=== PATIENT | male | born 1955 | race Caucasian/White ===

== ENCOUNTER 2017-01-29 12:42 | Emergency (ER) | payer OTHER, BC ==
[2017-01-29 12:56] VITALS: BP 135/92; PULSE 62; TEMP 97.8; BMI 32.1
[2017-01-29] MEDS ORDERED: IBUPROFEN 400 MG TABLET (FP) PO ONE ×2 (14:02→14:14)
--- NOTE | 2017-01-29 14:03 | PDOC ---
History of Present Illness - General Chief Complaint: Pain, Acute Stated Complaint: YPD - RT KNEE PAIN Time Seen by Provider: 01/29/17 13:55 History Source: Patient Exam Limitations: No Limitations - History of Present Illness Initial Comments: 01/29/17 14:02 While on duty, and attempting to assist partner who slipped and fell twisted his right knee. Complaints of pain to medial aspect of that knee. Is ambulatory but states is painful to flex and bear weight Occurred: reports: just prior to arrival, this afternoon Severity: reports: mild, moderate Pain Location: reports: lower extremity (right knee ) Past History - Past Medical History Allergies/Adverse Reactions: Allergies Allergy/AdvReac Type Severity Reaction Status Date / Time No Known Allergies Allergy Verified 01/29/17 12:56 Home Medications: Ambulatory Orders NK [No Known Home Medication] 06/19/16 Cardiac Disorders: Yes ([place]) - Surgical History Cardiac Surgery: Yes (STENT) - Psycho/Social/Smoking Cessation Hx Suicidal Ideation: No Smoking History: Former smoker Have you smoked in the past 12 months: No If you are a former smoker, when did you quit?: 12 YRS Information on smoking cessation initiated: No Hx Alcohol Use: Yes (OCCASIONALLY) Drug/Substance Use Hx: No Substance Use Type: None Review of Systems - Review of Systems Able to Perform ROS?: Yes Is the patient limited Albanian proficient: Yes Constitutional: Yes: Symptoms Reported HEENTM: No: Symptoms Reported Respiratory: No: Symptoms reported Musculoskeletal: Yes: Symptoms Reported, See HPI, Joint Pain, Joint Swelling *Physical Exam - Vital Signs Last Vital Signs Temp Pulse Resp BP Pulse Ox 97.8 F 62 16 135/92 97 01/29/17 12:53 01/29/17 12:53 01/29/17 12:53 01/29/17 12:53 01/29/17 12:53 - Physical Exam General Appearance: Yes: Appropriately Dressed, Apparent Distress Neck: positive: Tender, Supple Gastrointestinal/Abdominal: positive: Soft. negative: Tender Musculoskeletal: positive: Normal Inspection, Other (right knee with mild tenderness and reproduced tenderness along the medial aspect at inferior insertion of the MCL). negative: CVA Tenderness Extremity: positive: Normal Capillary Refill, Normal Range of Motion, Tender Integumentary: positive: Dry, Warm, Pale Neurologic: positive: technical healthcare consultant II-XII NML intact, Fully Oriented, Alert, Normal Mood/ Affect, Normal Response, Motor Strength 5/5 Progress Note - Progress Note Progress Note: Right knee sprain, will treat with NSAIDs, have follow-up with orthopedist *DC/Admit/Observation/Transfer Diagnosis at time of Disposition: Right knee sprain Qualifiers: Encounter type: initial encounter Involved ligament of knee: medial collateral ligament Qualified Code(s): S83.411A - Sprain of medial collateral ligament of right knee, initial encounter - Discharge Dispostion Disposition: HOME Condition at time of disposition: Stable Admit: No - Referrals Referrals: Justice Heart MD [Primary Care Provider] - Ambrosio Ruiz MD [Staff Physician] - - Patient Instructions Printed Discharge Instructions: DI for Knee Sprain Additional Instructions: Rest, ice to area on and off for 15 minutes 4-6 times a day Avoid heavy lifting or exercise until pain and swelling is resolved or until further directed Keep area highly elevated to reduce swelling Use splints/Dre wrap as directed Followup with orthopedist in one to 2 days if not improving, if significantly improved may wait one week for followup with orthopedist May use ibuprofen 2-200 mg tablets every 6 hours as needed for pain - Post Discharge Activity Work/School Note: Back to Work
== END 2017-01-29 14:47 | disposition home or self-care (01) ==
LOC: JERFT 12:42
PROC: 2W3QX1Z Immobilization of Right Lower Leg using Splint (ICD-10-PCS; principal; 2017-01-29)
DX: S83.411A Sprain of medial collateral ligament of right knee, initial encounter (principal); Y35.891A Legal intervention involving other specified means, law enforcement official injured, initial encounter; Y93.89 Activity, other specified; Y92.9 Unspecified place or not applicable; Y99.0 Civilian activity done for income or pay; Z95.5 Presence of coronary angioplasty implant and graft; I25.2 Old myocardial infarction; Z87.891 Personal history of nicotine dependence
CPT/HCPCS: 99281-25

== ENCOUNTER 2018-09-28 17:32 | Emergency (ER) | payer BC, OTHER ==
--- NOTE | 2018-09-28 17:39 | PDOC ---
Rapid Medical Evaluation Chief Complaint: Pain, Acute Time Seen by Provider: 09/28/18 17:35 Medical Evaluation: Allergies Allergy/AdvReac Type Severity Reaction Status Date / Time No Known Allergies Allergy Verified 01/29/17 12:56 09/28/18 17:35I have performed a brief in-person evaluation of this patient. The patient presents with a chief complaint of: right flank pain x 2 days, + stones 16yrs ago Pertinent physical exam findings: pale/ squirming/ + CVAT right I have ordered the following: spiral CT The patient will proceed to the ED for further evaluation. 09/28/18 17:38
[2018-09-28 17:41] VITALS: TEMP 98; BMI 32.2
[2018-09-28] MEDS ORDERED: KETOROLAC TROMETHAMINE 30 MG/1 ML VIAL IVPUSH ONE (18:08)
--- NOTE | 2018-09-28 18:08 | PDOC ---
Attending Attestation - HPI HPI: 09/28/18 18:27 The patient is a 63 year old male, with a significant past medical history of [place] (s/p stent) and nephrolithiasis, who presents to the ED complaining of flank pain for the past 3 days. He reports that his flank pain is localized in the left side, sharp in nature and intermittent in duration, ranging from mild to moderate in severity. He notes that the pain radiates to his groin. He reports that for the past day his pain has been constant and reports 2 episodes on nonbloody / nonbilious emesis. The patient denies chest pain, shortness of breath, headache and dizziness. Denies fever, chills, nausea, vomiting, diarrhea or constipation. Denies dysuria , frequency, urgency and hematuria. Allergies: None Past surgical history: Cardiac Stent (x1) Social History: Occasional Alcohol use. PMD: Dr. Justice Heart - Physicial Exam PE: 09/28/18 18:27 Constitutional: Awake, alert, oriented. No acute distress. Head: Normocephalic. Atraumatic Eyes: PERRL. EOMI. Conjunctivae are not pale. ENT: Mucous membranes are moist and intact. Posterior pharynx without exudates or erythema. Uvula midline. Neck: Supple. Full ROM. No lymphadenopathy. Cardiovascular: Regular rate. Regular rhythm. S1, S2 regular. Distal pulses are 2+ and symmetric. Pulmonary/Chest: No evidence of respiratory distress. Clear to auscultation bilaterally No wheezing, rales or rhonchi. Abdominal: Soft and non-distended. There is no tenderness. No rebound, guarding or rigidity. No organomegaly. No palpable masses. Good bowel sounds. Back: No CVA tenderness. Musculoskeletal: No edema. No cyanosis. No clubbing. Full range of motion in all extremities. Nocalf tenderness. Radial/pedal pulses are intact and 2+ bilaterally Skin: Skin is warm and dry. No petechiae. No purpura. Neurological: Alert and oriented to person, place, and time. Cranial nerves II -XII are grossly intact. Normal speech. Strength is grossly symmetric. No sensory deficits. Psychiatric: Good eye contact. Normal interaction, affect and behavior. <Cam Sharma - Last Filed: 09/28/18 18:27> - Resident Resident Name: Justin Abarcaica - ED Attending Attestation I have performed the following: I have examined & evaluated the patient, The case was reviewed & discussed with the resident, I agree w/resident's findings & plan, Exceptions are as noted - HPI HPI: 09/28/18 18:08 63-year-old male presents with flank pain and nausea. He has a history of kidney stones - Medical Decision Making 09/28/18 18:15 73-year-old male who presents with severe flank pain. He has a h/o kidney stones 09/28/18 18:16 last week he had a stress test that was negative and a colonoscopy 09/28/18 19:58 pt had rt sided flank pain on Sat and vomited,he felt better Sun but then again had symptoms today UA [id number] spiral reading 09/28/18 20:53 sm 3 mm stone imp nephrolithiasis plan urology f/u <Priyanka Paredes - Last Filed: 09/28/18 20:55>
[2018-09-28] MEDS ORDERED: SODIUM CHLORIDE 0.9% 500 ML INFUS.BAG IV ONE (18:09)
--- NOTE | 2018-09-28 18:12 | PDOC ---
History of Present Illness - General Chief Complaint: Pain, Acute Stated Complaint: KIDNEY STONE PAIN Time Seen by Provider: 09/28/18 17:35 - History of Present Illness Initial Comments: 09/28/18 18:09 The patient is a 63 year old male with a PMH of [place] (s/p stent) and remote (16 years +) nephrolithiasis who presents to our ED c/o L flank pain that radiates to his groin. Pain started acutely Friday evening and was initially intermittent and sharp and has been constant for the last one day prompting his visit to the ED. Endorses 1-2 episodes of NBNB emesis. Denies dysuria/ hematuria, fevers/chills. NKDA Surgical: Stent x1 Social: denies toxic habits PMD: Dr. Justice Heart Past History - Past Medical History Allergies/Adverse Reactions: Allergies Allergy/AdvReac Type Severity Reaction Status Date / Time No Known Allergies Allergy Verified 09/28/18 17:36 Home Medications: Ambulatory Orders Aspirin [ASA -] 325 mg PO DAILY 09/28/18 Metoprolol Succinate [Toprol Xl -] 25 mg PO DAILY 09/28/18 Oxycodone HCl/Acetaminophen [Percocet 5-325 mg Tablet] 1 tab PO Q6H PRN #4 tablet MDD 4 tabs 09/28/18 Rosuvastatin [Crestor -] 5 mg PO HS 09/28/18 Tamsulosin HCl [Flomax -] 0.4 mg PO DAILY #7 capsule 09/28/18 Cardiac Disorders: Yes ([place]) - Surgical History Cardiac Surgery: Yes (STENT) - Suicide/Smoking/Psychosocial Hx Smoking History: Never smoked Have you smoked in the past 12 months: No If you are a former smoker, when did you quit?: 12 YRS Hx Alcohol Use: Yes (OCCASIONALLY) Drug/Substance Use Hx: No Substance Use Type: None *Physical Exam - Vital Signs Last Vital Signs Temp Pulse Resp BP Pulse Ox 98 F 76 20 210/115 H 98 09/28/18 17:38 09/28/18 17:38 09/28/18 17:38 09/28/18 17:38 09/28/18 17:38 Medical Decision Making - Medical Decision Making 09/28/18 18:12 63 year old male with R flank pain. Remote h/o nephrolithiasis. Frontal Dx: nephrolithiasis, UTI/pyelonephritis, muscle spasm, low clinical suspicion for pain as anginal equivalent. Hypertensive (200/115) @ presentation. Will obtain Spiral CT and IV hydration + Toradol. Reassess. 09/28/18 18:15 Repeat BP @ bedside 150/82 Bedside U/S shows no hydronephrosis, non-distended bladder UA 3+ blood 09/28/18 19:51 Patient reassessed @ bedside My read of CT shows R sided stone at proximal ureter 09/28/18 20:[address] shows 3mm distal right ureteral calculus adjacent to urterovesical junction. Will discharge patient home with return precautions, urology referral, urine strainer. I discussed the physical exam findings, ancillary test results and final diagnoses with the patient. I answered all of the patient's questions. The patient was satisfied with the care received and felt comfortable with the discharge plan and treatment plan. The patient will return to the Emergency Department with any new, persistent or worsening symptoms. *DC/Admit/Observation/Transfer Diagnosis at time of Disposition: Nephrolithiasis - Discharge Dispostion Disposition: HOME Condition at time of disposition: Good Decision to Admit order: No - Prescriptions Prescriptions: Oxycodone HCl/Acetaminophen [Percocet 5-325 mg Tablet] 1 tab PO Q6H PRN #4 tablet MDD 4 tabs PRN Reason: Severe Pain Tamsulosin HCl [Flomax -] 0.4 mg PO DAILY #7 capsule - Referrals Referrals: Justice Heart MD [Primary Care Provider] - Cuco Yanez MD., MD [Staff Physician] - - Patient Instructions Printed Discharge Instructions: Kidney Stones -- Adult Additional Instructions: You were evaluated today for abdominal pain. A CT scan showed a small kidney stone. We are sending a pain prescription as well as another medication to help you pass the stone. Please take as directed. We are giving you urine strainers so you can attempt to catch your stone. We are also providing you with a referral to a urologist. Please see him for further evaluation. Take the copy of the cat scan with you. Return to the Emergency Department for any new/worsening/concerning symptoms. - Post Discharge Activity
[2018-09-28] MEDS ORDERED: KETOROLAC TROMETHAMINE 30 MG/1 ML VIAL ONE (18:22)
[2018-09-28 18:51] LABS: URINE APPEARANCE SLCLOUDY; URINE BILIRUBIN NEGATIVE (<2.0 mg/dL); URINE COLOR YELLOW; URINE GLUCOSE (UA) NEGATIVE (NEGATIVE); URINE KETONE NEGATIVE (NEGATIVE); URINE LEUK ESTERASE NEGATIVE (NEGATIVE); URINE NITRITE NEGATIVE (NEGATIVE); URINE PROTEIN 1+ (NEGATIVE); URINE UROBILINOGEN NEGATIVE mg/dL (0.2-1.0)
[2018-09-28 18:59] LABS: URINE HYALINE CAST 1 /lpf; URINE MUCUS RARE
[2018-09-28 19:47] VITALS: BP 150/82; PULSE 78
[2018-09-28] MEDS ORDERED: morphine CARPU-JECT 4 MG/1 ML DISP.SYRIN IVPUSH ONE (19:53)
[2018-09-28] MEDS ORDERED: MORPHINE SULFATE 10 MG/1 ML *VIAL ONE (20:02)
== END 2018-09-28 21:02 | disposition home or self-care (01) ==
LOC: JER 17:32
PROC: 3E033NZ Introduction of Analgesics, Hypnotics, Sedatives into Peripheral Vein, Percutaneous Approach (ICD-10-PCS; principal; 2018-09-28)
PROC: 3E0333Z Introduction of Anti-inflammatory into Peripheral Vein, Percutaneous Approach (ICD-10-PCS; 2018-09-28)
PROC: BT41ZZZ Ultrasonography of Right Kidney (ICD-10-PCS; 2018-09-28)
PROC: BT46ZZZ Ultrasonography of Right Ureter (ICD-10-PCS; 2018-09-28)
DX: N20.2 Calculus of kidney with calculus of ureter (principal); Z87.442 Personal history of urinary calculi; I10 Essential (primary) hypertension; I25.10 Atherosclerotic heart disease of native coronary artery without angina pectoris; Z95.5 Presence of coronary angioplasty implant and graft; I25.2 Old myocardial infarction
CPT/HCPCS: 74176; 81003; 81015; 99282-25

== ENCOUNTER 2022-05-03 04:13 | Day surgery (SDC) | payer OTHER, BC ==
[2022-05-02 11:06] VITALS: BMI 32.6
[2022-05-03] MEDS ORDERED: DEXAMETHASONE SOD PHOSPHATE 10 MG/1 ML VIAL ONE (07:23)
[2022-05-03] MEDS ORDERED: LIDOCAINE HCL/PF 1% SDV 5ML VIAL ONE (07:23)
[2022-05-03] MEDS ORDERED: LIDOCAINE HCL 1% PRESERVATIVE FREE - 30ML VIAL IJ ONE (09:00)
[2022-05-03] MEDS ORDERED: IOHEXOL 180 MG/1 ML ML IJ ONE (09:01)
[2022-05-03] MEDS ORDERED: DEXAMETHASONE SOD PHOSPHATE 10 MG/1 ML VIAL IVPUSH ONE (09:05)
[2022-05-03 09:36] VITALS: BP 128/62; PULSE 71; TEMP 97.3
== END 2022-05-03 09:40 | disposition home or self-care (01) ==
LOC: JASU-SURG 04:13
PROVIDERS: ATTEND Pain Medicine Pain Medicine
PROC: 3E0R33Z Introduction of Anti-inflammatory into Spinal Canal, Percutaneous Approach (ICD-10-PCS; 2022-05-03)
PROC: 3E0R3BZ Introduction of Anesthetic Agent into Spinal Canal, Percutaneous Approach (ICD-10-PCS; principal; 2022-05-03 08:45)
DX: M54.16 Radiculopathy, lumbar region (principal)
CPT/HCPCS: 76000-TC-FY; J1100